=== PATIENT | female | born 1960 | race Caucasian/White ===

== ENCOUNTER 2022-11-02 08:43 | Outpatient (CLI) | payer BC, SELFPAY | END 2022-11-02 08:44 | disposition home or self-care (01) | PROVIDERS: Visit Provider Internal Medicine Addiction Medicine | DX: F10.20 Alcohol dependence, uncomplicated (principal); F11.90 Opioid use, unspecified, uncomplicated | CPT/HCPCS: 80076 ==

== ENCOUNTER 2024-08-28 12:13 | Outpatient (CLI) | payer BC, SELFPAY | END 2024-08-28 12:14 | disposition home or self-care (01) | PROVIDERS: Visit Provider Internal Medicine Addiction Medicine | DX: K85.20 Alcohol induced acute pancreatitis without necrosis or infection (principal) | CPT/HCPCS: 80048; 80076; 83690; 83735; 84100 ==